=== PATIENT | male | born 1955 | race Caucasian/White ===

== ENCOUNTER → 2024-04-21 07:18 | Day surgery (SDC) | payer OTHER, SELFPAY ==
[2024-04-21 10:03] LABS: Glucose - Point of Care 97 mg/dl (70-99)
== END ==
LOC: GI 07:18
PROVIDERS: ATTENDING PHYSICIAN Specialist; FAMILY PHYSICIAN Family Medicine
DX: Z12.11 Encounter for screening for malignant neoplasm of colon (principal); K57.30 Diverticulosis of large intestine without perforation or abscess without bleeding; D12.8 Benign neoplasm of rectum; K63.5 Polyp of colon; Z86.010 Personal history of colon polyps
CPT/HCPCS: 45385; 45380; 88305; 82962